=== PATIENT | female | born 1940 | race Caucasian/White ===

== ENCOUNTER 2020-11-18 16:06 | Emergency (ER) | payer MEDICARE, OTHER ==
[~2020-11-18] VITALS: Ht 154.9 cm; Wt 77.1 kg
[2020-11-18 16:30] VITALS: BP 148/66
[2020-11-18] MEDS: Ketorolac 30mg Inj IV ONE ×2 (16:30→17:57)
--- NOTE | 2020-11-18 16:30 | NUR ---
ED Nurse Note: Pt ambulated to ED from home with c/o lower abdominal pain, non-radiating. Pt is AOx4, calm and cooperative to care, denies any nausea/vomiting nor diarrhea; VSS.
--- NOTE | 2020-11-18 16:34 | NUR ---
ED Nurse Note: pt was taken to CT, ambulatory.
--- NOTE | 2020-11-18 17:12 | Diagnostic Imaging Report ---
Indication: Lower abdominal pain since last night Technique: Spiral acquisitions obtained through the abdomen and pelvis. No oral contrast utilized, per emergency room physician request No IV contrast utilized, per referring physician request.. Multiplanar reconstructions were generated. Total dose length product 479 mGycm. CTDIvol(s) 10 mGy. Dose reduction achieved using automated exposure control Comparison: 06/03/2020 Findings: There is a 3 mm calcification in the proximal left ureter a few centimeters below the ureteropelvic junction. There is moderate left hydronephrosis, extent of which appears similar to the previous study. The proximal calculus is a new finding. Previously demonstrated left distal ureteral calculus is not evident. There is considerably less stranding of the perinephric fat than was evident previously. Multiple small calculi are seen in the left lower pole collecting system, measuring up to 3 mm in diameter. Again demonstrated is a large cyst coming off of the left lower pole. Again demonstrated is what appears to be mild right hydronephrosis. However, no ureteral obstructive lesion is demonstrated, and the ureter is normal in caliber over its length. No right ureteral calculi are evident. The bladder is unremarkable. Lack of IV contrast limits assessment of the renal parenchyma. No other renal parenchymal mass or cyst demonstrated. Lack of IV contrast limits assessment of the other solid organs. Again demonstrated are 2 hepatic cysts which appear unchanged. The gallbladder, bile ducts, pancreas, spleen, adrenals are unremarkable. No retroperitoneal or mesenteric mass or adenopathy. No pelvic mass or adenopathy. Normal appendix. There are colonic diverticula. No evidence of diverticulitis. Apparent mild wall thickening of the descending colon is probably an artifact of under distention. No small bowel distention. No free or loculated intraperitoneal gas or fluid is evident. The included lung bases demonstrate some scarring in the right lower lobe which is also evident previously. Some linear scarring is also seen in the left lower lobe. The bones demonstrate degenerative spondylosis changes. Impression: Positive for left proximal ureteral calculus. This results in moderate hydronephrosis. There are right hydronephrosis. This appears similar to the previous exam, may be an artifact due to parapelvic cysts, or could be due to chronic ureteropelvic junction obstruction. Colonic diverticulosis. No evidence of diverticulitis Other findings as noted, including degenerative spondylosis, basilar pulmonary parenchymal scarring, hepatic and left renal cysts The CT scanner at [facility] is accredited by the [employer] and the scans are performed using protocols designed to limit radiation exposure to as low as reasonably achievable to attain images of sufficient resolution adequate for diagnostic evaluation.
[2020-11-18 17:24] LABS: BASOPHILS % (AUTO) 1.6 % (0.0-2.0); EOSINOPHILS % (AUTO) 0.6 % (0.0-3.0); HEMATOCRIT 37.2 % (37.0-47.0); HEMOGLOBIN 13.2 G/DL (12.0-16.0); LYMPHOCYTES % (AUTO) 31.7 % (20.0-45.0); MEAN CORPUSCULAR VOLUME 86 FL (80-99); MONOCYTES % (AUTO) 6.4 % (1.0-10.0); NEUTROPHILS % (AUTO) 59.7 % (45.0-75.0); PLATELET COUNT 259 K/UL (150-450); RED BLOOD COUNT 4.31 M/UL (4.20-5.40); WHITE BLOOD COUNT 8.5 K/UL (4.8-10.8)
[2020-11-18 17:30] LABS: BILIRUBIN, URINE NEGATIVE (NEGATIVE); COLOR,URINE PALE YELLOW; GLUCOSE, URINE (UA) NEGATIVE (NEGATIVE); KETONES,URINE NEGATIVE (NEGATIVE); LEUKOCYTE ESTERASE ,URINE 1+ (NEGATIVE); NITRITE,URINE NEGATIVE (NEGATIVE); PH,URINE 5 (4.5-8.0); PROTEIN,URINE NEGATIVE (NEGATIVE); UROBILINOGEN,URINE NORMAL MG/DL (0.0-1.0)
[2020-11-18 17:33] LABS: APPEARANCE,URINE SLIGHTLY CLOUDY
[2020-11-18 17:40] LABS: ANION GAP 10 mmol/L (5-15); BLOOD UREA NITROGEN 16 mg/dL (7-18); CALCIUM 9.8 MG/DL (8.5-10.1); CARBON DIOXIDE 24 MMOL/L (21-32); CHLORIDE 106 MMOL/L (98-107); CREATININE 0.9 MG/DL (0.55-1.30); POTASSIUM 3.9 MMOL/L (3.5-5.1); SODIUM 140 MMOL/L (136-145)
--- NOTE | 2020-11-18 17:40 | Emergency Room Report ---
History of Present Illness General Chief Complaint: Abdominal Pain Present Illness HPI 80-year-old female with history of renal stone here complaining of 2 days of lower abdominal pain and urinary frequency. Reports that she took Tylenol earlier today and no longer feels the pain. Denies any hematuria. Denies any flank pain at this time. Denies fever and chills, nausea vomiting, chest pain shortness of breath. Patient was last seen in [place] few months ago due to renal stones and hydronephrosis. Patient is ambulatory, speaking full sentences, no discomfort. Allergies: Coded Allergies: CODEINE (Verified Allergy, Unknown, 06/03/20) COVID-19 Screening Contact w/high risk pt: No Experienced COVID-19 symptoms?: No COVID-19 Testing performed [employer] P[employer]: No Patient History Past Medical History: see triage record Past Surgical History: none Pertinent Family History: none Now: No Immunizations: UTD Reviewed Nursing Documentation: PMH: Agreed; PSxH: Agreed Nursing Documentation-PMH Hx Cardiac Problems: No Hx Cancer: Yes - right breast 1999 Hx Gastrointestinal Problems: No - stones Hx Neurological Problems: No Review of Systems All Other Systems: negative except mentioned in HPI Physical Exam Vital Signs Date Time Temp Pulse Resp B/P (MAP) Pulse Ox O2 Delivery O2 Flow Rate FiO2 11/18/20 16:17 98.4 62 16 148/66 (93) 95 Room Air Sp02 EP Interpretation: reviewed, normal General Appearance: no apparent distress, alert, GCS 15, non-toxic Head: normocephalic, atraumatic Eyes: bilateral eye normal inspection, bilateral eye PERRL ENT: hearing grossly normal, normal pharynx, no angioedema, normal voice Neck: full range of motion, supple/symm/no masses Respiratory: chest non-tender, lungs clear, normal breath sounds, no rhonchi, no respiratory distress, no retraction, no accessory muscle use, speaking full sentences Cardiovascular #1: regular rate, rhythm, no edema Cardiovascular #2: 2+ carotid (R), 2+ carotid (L), 2+ radial (R), 2+ radial (L), 2+ dorsalis pedis (R), 2+ dorsalis pedis (L) Gastrointestinal: non tender, soft, no mass, no organomegaly, no peritonitis, no bruit, non-distended Rectal: deferred Genitourinary: no CVA tenderness Musculoskeletal: back normal Neurologic: alert, motor strength/tone normal, oriented x3, sensory intact, responsive, speech normal Psychiatric: judgement/insight normal, memory normal, mood/affect normal, no suicidal/homicidal ideation Skin: no rash Lymphatic: no adenopathy Medical Decision Making PA Attestation All diagnoses and treatment plans were reviewed and discussed with my supervising physician Dr. Lyon Diagnostic Impression: Primary Impression: Renal stone Additional Impressions: Hydronephrosis Diverticulosis ER Course 80-year-old female with history of renal stone here complaining of 2 days of lower abdominal pain and urinary frequency. Reports that she took Tylenol earlier today and no longer feels the pain. Denies any hematuria. Denies any flank pain at this time. Denies fever and chills, nausea vomiting, chest pain shortness of breath. Patient was last seen in [place] few months ago due to renal stones and hydronephrosis. Patient is ambulatory, speaking full sentences, no discomfort. Ddx considered but are not limited to: Renal stone, pyelonephritis, UTI, appendicitis, cholecystitis Vital signs: are WNL, pt. is afebrile H&PE are most consistent with: Renal stone with mild hydronephrosis ORDERS: abdominal CT, CBC, CMP, UA, lipase, Flomax ED INTERVENTIONS: Toradol IM I also explained the assessment and plan for patient daughter as she was on the phone, also used my nurse Ruba for [place] translation. Advised patient to need to follow-up with a urologist DISCHARGE: At this time pt. is stable for d/c to home. Will provide printed patient care instructions, and any necessary prescriptions. Care plan and follow up instructions have been discussed with the patient prior to discharge. Take medication as directed, follow primary care provider, if worsening symptom return to the emergency room CT/MRI/US Diagnostic Results CT/MRI/US Diagnostic Results : Imaging Test Ordered: CT abdomen pelvis no contrast Impression Lack of IV contrast limits assessment of the other solid organs. Again demonstrated are 2 hepatic cysts which appear unchanged. The gallbladder, bile ducts, pancr eas, spleen, adrenals are unremarkable. No retroperitoneal or mesenteric mass or adenopathy. No pelvic mass or adenopathy. Normal appendix. There are colonic diverticula. No evidence of diverticulitis. Apparent mild wall thickening of the descending colon is probably an artifact of under distention. No small bowel distention. No free or loculated intraperitoneal gas or fluid is evident. The included lung bases demonstrate some scarring in the right lower lobe which is also evident previously. Some linear scarring is also seen in the left lower lobe. The bones demonstrate degenerative spondylosis changes. Impression: Positive for left proximal ureteral calculus. This results in moderate hydronephrosis. There are right hydronephrosis. This appears similar to the previous exam, may be an artifact due to parapelvic cysts, or could be due to chronic ureteropelvic junction obstruction. Colonic diverticulosis. No evidence of diverticulitis Other findings as noted, including degenerative spondylosis, basilar pulmonary parenchymal scarring, hepatic and left renal cysts Last Vital Signs Date Time Temp Pulse Resp B/P (MAP) Pulse Ox O2 Delivery O2 Flow Rate FiO2 11/18/20 16:17 98.4 62 16 148/66 (93) 95 Room Air Disposition: HOME, SELF-CARE Condition: Stable Scripts Tamsulosin HCl (Flomax) 0.4 Mg Cap.er.24h 0.4 MG ORAL DAILY for BPH for 10 Days, #10 CAP Prov: Gio Valdez 11/18/20 Referrals: ROBER BROWN (PCP) Patient Instructions: Renal Colic, [id number] Additional Instructions: Take medication as directed, follow primary care provider and urologist, if worsening symptoms return to the emergency room Gio Valdez Nov 18, 2020 17:40
[2020-11-18 17:44] LABS: ALANINE AMINOTRANSFERASE 18 U/L (12-78); ALBUMIN 3.7 G/DL (3.4-5.0); ALBUMIN/GLOBULIN RATIO 1.1 (1.0-2.7); ALKALINE PHOSPHATASE 99 U/L (46-116); ASPARTATE AMINO TRANSFERASE 21 U/L (15-37); BILIRUBIN,TOTAL 0.3 MG/DL (0.2-1.0)
[2020-11-18] MEDS ORDERED: AUGMENTIN 875-1 EAC1 ORAL (17:50)
[2020-11-18] MEDS ORDERED: FLOMAX0.4 MG ORAL ×3 (17:51→18:12)
[2020-11-18 18:12] VITALS: BP 135/78
--- NOTE | 2020-11-18 18:12 | NUR ---
ED Nurse Note: Pt cleared by ERPA for discharge. DC instructions/prescription was given and explained to pt and verbalized understanding of teachings. All medical deviecs such as ID band removed. Pt is AAO x4, ambulatory and left with all personal belongings.
== END 2020-11-18 18:15 | disposition home or self-care (01) ==
LOC: EMR 16:45
DX: N13.2 Hydronephrosis with renal and ureteral calculous obstruction (principal); K57.30 Diverticulosis of large intestine without perforation or abscess without bleeding; Z88.5 Allergy status to narcotic agent; Z85.3 Personal history of malignant neoplasm of breast
CPT/HCPCS: 36415; 74176; 80053; 81003; 83690; 85025; 96374; 99284; J1885